=== PATIENT | female | born 2000 | race Caucasian/White ===

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

== ENCOUNTER 2020-03-09 07:30 | Emergency (ER) | payer OTHER ==
[~2020-03-09] VITALS: Ht 162.5 cm; Wt 77.2 kg
[~2020-03-09 07:30] MED LIST: METH-313 PO
[2020-03-09] MEDS ORDERED: KETOROLAC 30 MG/ML VIAL IVP ONE (07:45)
--- NOTE | 2020-03-09 07:48 | ED Abdominal Pain ---
General Stated Complaint: RLQ PAIND Source of Information: Patient Exam Limitations: No Limitations History of Present Illness Date Seen by Provider: Mar 09, 2020 Time Seen by Provider: 07:30 Initial Comments Patient presents ER by private conveyance from home with chief complaint she was awoken by an hour ago with 7 out of 10 right-sided sharp pain in her right lower quadrant radiating down towards her pelvis. She is not had this pain before. She denies any nausea fevers chills. She had a bowel movement yesterday. No abdominal surgeries, trauma or significant medical history. She is on antiallergy medicines and oral contraceptives. Allergies and Home Medications Allergies Coded Allergies: No Known Drug Allergies (Unverified , 03/09/20) Home Medications Methocarbamol 750 Mg Tablet, 750 MG PO Q4H PRN for PAIN-MODERATE (5-7) Prescribed by: JENNIFER JONES on 12/25/181943 Patient Home Medication List Home Medication List Reviewed: Yes Review of Systems Review of Systems Constitutional: No chills, No diaphoresis EENTM: No Blurred Vision, No Double Vision Respiratory: Denies Cough, Denies Shortness of Air Cardiovascular: Denies Chest Pain, Denies Lightheadedness Gastrointestinal: See HPI, Abdominal Pain; Denies Constipated, Denies Diarrhea, Denies Nausea Genitourinary: Denies Burning, Denies Discharge Musculoskeletal: No back pain, No joint pain Skin: No pruritus, No rash All Other Systems Reviewed Negative Unless Noted: Yes Past Eoprkix-Awpdrg-Ofngcq Hx Patient Social History Alcohol Use: Denies Use Smoking Status: Never a Smoker 2nd Hand Smoke Exposure: No Recent Hopitalizations: No Immunizations Up To Date Tetanus Booster (TDap): Less than 5yrs PED Vaccines UTD: Yes Seasonal Allergies Seasonal Allergies: Yes Past Medical History Orthopedic Respiratory: No Cardiac: No Neurological: No Genitourinary: No Gastrointestinal: No Musculoskeletal: No Endocrine: No HEENT: No Cancer: No Psychosocial: No Integumentary: No Blood Disorders: No Physical Exam Vital Signs Vital Signs - First Documented 03/09/20 07:42 Temp 36.0 Pulse 113 Resp 18 B/P (MAP) 129/79 (96) Pulse Ox 99 O2 Delivery Room Air Capillary Refill : Height/Weight/BMI Height: '" Weight: lbs. oz. kg; 26.00 BMI Method: General Appearance: WD/WN, no apparent distress HEENT: PERRL/EOMI, pharynx normal Respiratory: no respiratory distress, no accessory muscle use Cardiovascular: normal peripheral pulses, regular rate, rhythm Peripheral Pulses: 2+ Radial Pulses (R), 2+ Radial Pulses (L) Gastrointestinal: normal bowel sounds, non tender, soft, no organomegaly, other (Negative for McBurney's point tenderness, rebound tenderness, Thurston sign, psoas sign) Back: normal inspection, no CVA tenderness Neurologic/Psychiatric: alert, oriented x 3 Skin: normal color, warm/dry Progress/Results/Core Measures Results/Orders Lab Results Laboratory Tests Test 03/09/20 08:00 Range/Units White Blood Count 10.8 4.3-11.0 10^3/uL Red Blood Count 4.39 3.80-5.11 10^6/uL Hemoglobin 13.6 11.5-16.0 g/dL Hematocrit 40 35-52 % Mean Corpuscular Volume 90 80-99 fL Mean Corpuscular Hemoglobin 31 25-34 pg Mean Corpuscular Hemoglobin Concent 34 32-36 g/dL Red Cell Distribution Width 11.6 10.0-14.5 % Platelet Count 338 130-400 10^3/uL Mean Platelet Volume 9.7 9.0-12.2 fL Immature Granulocyte % (Auto) 0 % Neutrophils (%) (Auto) 55 42-75 % Lymphocytes (%) (Auto) 37 12-44 % Monocytes (%) (Auto) 5 0-12 % Eosinophils (%) (Auto) 2 0-10 % Basophils (%) (Auto) 1 0-10 % Neutrophils # (Auto) 5.9 1.8-7.8 10^3/uL Lymphocytes # (Auto) 4.0 1.0-4.0 10^3/uL Monocytes # (Auto) 0.5 0.0-1.0 10^3/uL Eosinophils # (Auto) 0.2 0.0-0.3 10^3/uL Basophils # (Auto) 0.1 0.0-0.1 10^3/uL Immature Granulocyte # (Auto) 0.0 0.0-0.1 10^3/uL Sodium Level 138 135-145 MMOL/L Potassium Level 3.4 L 3.6-5.0 MMOL/L Chloride Level 109 H 98-107 MMOL/L Carbon Dioxide Level 18 L 21-32 MMOL/L Anion Gap 11 5-14 MMOL/L Blood Urea Nitrogen 9 7-18 MG/DL Creatinine 0.84 0.60-1.30 MG/DL Estimat Glomerular Filtration Rate > 60 BUN/Creatinine Ratio 11 Glucose Level 116 H 70-105 MG/DL Calcium Level 8.9 8.5-10.1 MG/DL Corrected Calcium 9.0 8.5-10.1 MG/DL Total Bilirubin 0.4 0.1-1.0 MG/DL Aspartate Amino Transf (AST/SGOT) 23 5-34 U/L Alanine Aminotransferase (ALT/SGPT) 22 0-55 U/L Alkaline Phosphatase 42 40-136 U/L C-Reactive Protein High Sensitivity 0.23 0.00-0.50 MG/DL Total Protein 7.3 6.4-8.2 GM/DL Albumin 3.9 3.2-4.5 GM/DL Serum Test, Qualitative NEGATIVE NEGATIVE My Orders Orders - CROW MADRIGAL Ua Culture If Indicated (03/09/20 07:32) Cbc With Automated Diff (03/09/20 07:40) Comprehensive Metabolic Panel (03/09/20 07:40) Hs C Reactive Protein (03/09/20 07:40) Ketorolac Injection (Toradol Injection) (03/09/20 07:45) Ed Iv/Invasive Line Start (03/09/20 07:40) Ed Iv/Invasive Line Start (03/09/20 07:50) Lactated Ringers (Lr 1000 Ml Iv Solution (03/09/20 08:00) Ondansetron Injection (Zofran Injectio (03/09/20 08:15) Ondansetron Injection (Zofran Injectio (03/09/20 07:59) Fentanyl Injection (Sublimaze Injection (03/09/20 08:45) Ondansetron Injection (Zofran Injectio (03/09/20 08:45) Ct Abd/Pelvis Wo(Kidney Stone) (03/09/20 08:37) Hcg,Qualitative Serum (03/09/20 08:46) Tamsulosin Capsule (Flomax Capsule) (03/09/20 18:00) Ceftriaxone For Iv Use (Rocephin For I (03/09/20 09:15) Tamsulosin Capsule (Flomax Capsule) (03/09/20 09:17) Tamsulosin Capsule (Flomax Capsule) (03/09/20 09:22) Medications Given in ED Current Medications Medications Dose Ordered Sig/Rina Route Start Time Stop Time Status Last Admin Dose Admin Ceftriaxone Sodium 1000 mg/ Sterile Water 10 ml @ 200 mls/hr ONCE ONCE IV 03/09/20 09:15 03/09/20 09:17 DC 03/09/20 09:29 200 MLS/HR Fentanyl Citrate 25 mcg ONCE ONCE IVP 03/09/20 08:45 03/09/20 08:46 DC 03/09/20 08:43 25 MCG Ketorolac Tromethamine 30 mg ONCE ONCE IVP 03/09/20 07:45 03/09/20 07:46 DC 03/09/20 08:03 30 MG Lactated Ringer's 1,000 ml @ 0 mls/hr Q0M ONCE IV 03/09/20 08:00 03/09/20 08:01 DC 03/09/20 08:05 1,000 MLS/HR Ondansetron HCl 4 mg ONCE ONCE IVP 03/09/20 08:15 03/09/20 08:16 DC 03/09/20 08:08 4 MG Ondansetron HCl 4 mg ONCE ONCE IVP 03/09/20 08:45 03/09/20 08:46 DC 03/09/20 08:41 4 MG Vital Signs/I&O 03/09/20 07:42 Temp 36.0 Pulse 113 Resp 18 B/P (MAP) 129/79 (96) Pulse Ox 99 O2 Delivery Room Air Progress Progress Note #1: Time: 07:48 Progress Note Patient rates her pain as a 7 out of 10 so we have offered some Toradol. We are going to check some urine and labs however she has a non concerning abdominal exam and a septic vital signs. Gynecologic ovarian/mittelschmerz, less likely appendicitis/colitis. She does not seem acutely uncomfortable as though she had a kidney stone trying to pass. If her pain improves and her labs are unremarkable then I would encourage follow-up outpatient in the clinic. Progress Note #2: Time: 08:36 Progress Note The patient reported nausea shortly after arriving. She was unable to produce a urine sample. A liter of fluids and 4 of Zofran were ordered. The patient did not derive any pain relief from the Toradol so 25 mcg of fentanyl were ordered and another 4 of Zofran was ordered after she had an episode of emesis. Kidney stone, gynecologic, appendicitis. On repeat examination the patient is having positive tenderness to percussion over the right costovertebral angle. She says her pain comes and goes in waves and is very bad about 8 out of 10 right now. Pain does not appear to be positional. A CT scan of the abdomen and pelvis without IV contrast kidney stone protocol has been ordered. She has about 400 cc of her fluid left to go. Diagnostic Imaging Diagonstic Imaging: CT (Kidney stone study, without IV contrast) Plain Films/CT/US/NM/MRI: abdomen, pelvis Comments NAME: GISELA KAUR [facility] REC#: [id number] PT STATUS: REG ER : 2000 PHYSICIAN: CROW MADRIGAL MD ADMIT DATE: 03/09/20/ER Draft Date of Exam:03/09/20 CT ABD/PELVIS WO(KIDNEY STONE) PROCEDURE: CT urinary tract, rule out kidney stone. TECHNIQUE: Multiple contiguous axial images were obtained through the abdomen and pelvis without the use of intravenous contrast. Auto Exposure Controls were utilized during the CT exam to meet ALARA standards for radiation dose reduction. INDICATION: Right-sided pain. FINDINGS: There are two stones within the proximal third of the right ureter. The more proximal has a long axis of 3.4 mm and the more distal measures 3.2 mm. There is some associated urothelial thickening. The ureter is decompressed beyond the level of the more distal stone and no additional opaque ureteral or bladder calculi are found. There is a very mild degree of right-sided upstream hydronephrosis but no urinoma or perinephric fluid collection. The unobstructed left kidney appears nonfocal and nonacute. The left ureter is without stone or dilatation. The uterus, adnexa, and urinary bladder are unremarkable. There is no appendicitis. The liver, gallbladder, bile ducts, spleen, adrenals, and pancreas are negative. The aorta is normal in caliber. IMPRESSION: Two proximal third right ureteral stones with mild upstream right-sided hydroureteronephrosis. Negative left kidney. No other significant finding. Dictated on workstation # [id number] Dict: 03/09/20 0903 Trans: 03/09/20 0932 [id number] Interpreted by: ANTONELLA FERRO Electronically signed by: Reviewed: Reviewed by Me Departure Impression Primary Impression: Ureteral calculi Disposition: HOME, SELF-CARE Condition: Improved Departure-Patient Inst. Decision time for Depature: 09:36 Referrals: NO,LOCAL PHYSICIAN (PCP) Primary Care Physician NOELLE DUMONT MD Patient Instructions: How to Strain Your Urine, Kidney Stones (DC) Add. Discharge Instructions: Drink lots of fluids. Tylenol 650 mg every 8 hours as needed for pain. Motrin 800 mg every 8 hours as needed for pain. Heat applied to the back as needed. Hydrocodone 1 tablet every 6 hours as necessary for breakthrough pain. Flomax 1 capsule daily until you pass the stones. Ondansetron 1 tablet every 6 hours under the tongue as necessary for nausea and/or vomiting. Keflex 1 capsule twice a day for the next week to treat possible UTI. Strain your urine using the strainer to see when the stones pass. Occasionally stones will break up and not be caught in the strainer. Symptoms should resolve 1 to 2 days after the passing of stones. If your symptoms are going on into early next week then I suggest you follow-up with Dr. Dumont, urology. Return to the nearest ER if you are having intractable pain and/or nausea, fever etc. Scripts Tamsulosin HCl (Flomax) 0.4 Mg Cap 0.4 MG PO HS for 7 Days, #7 CAP 0 Refills Prov: CROW MADRIGAL 03/09/20 Cephalexin (Cephalexin) 500 Mg Tablet 500 MG PO BID for 7 Days, #14 TAB 0 Refills Prov: CROW MADRIGAL 03/09/20 Ondansetron (Ondansetron Odt) 4 Mg Tab.rapdis 4 MG PO Q6H PRN for NAUSEA/VOMITING, #15 TAB 0 Refills Prov: CROW MADRIGAL 03/09/20 Hydrocodone/Acetaminophen (Hydrocodone-Acetamin 5-325 mg) 1 Each Tablet 1 TAB PO Q6H PRN for PAIN-MODERATE (5-7), #15 TAB 0 Refills Prov: CROW MADRIGAL 03/09/20 Work/School Note: School/Childcare Release Date Seen in the Emergency Department: Mar 09, 2020 Time Dismissed from Emergency Department: 10:45 Return to School: Mar 14, 2020 Restrictions: No Restrictions Other Restrictions Listed Below: May return sooner if symptoms allow. Copy Copies To 1: NOELLE DUMONT MD, TITUS J Mar 09, 2020 07:48
[2020-03-09] MEDS ORDERED: ONDANSETRON 4 MG/2 ML (SDV) Z0FRAN ONE (07:59)
[2020-03-09] MEDS ORDERED: LACTATED RINGERS 1,000 ML IV ONE (08:00)
[2020-03-09 08:13] LABS: BASOPHILS # (AUTO) 0.1 10^3/uL (0.0-0.1); BASOPHILS % (AUTO) 1 % (0-10); EOSINOPHILS # (AUTO) 0.2 10^3/uL (0.0-0.3); EOSINOPHILS % (AUTO) 2 % (0-10); HEMATOCRIT 40 % (35-52); HEMOGLOBIN 13.6 g/dL (11.5-16.0); LYMPHOCYTES % (AUTO) 37 % (12-44); MEAN CORPUSCULAR HEMOGLOBIN 31 pg (25-34); MEAN CORPUSCULAR HGB CONC 34 g/dL (32-36); MEAN CORPUSCULAR VOLUME 90 fL (80-99); MEAN PLATELET VOLUME 9.7 fL (9.0-12.2); MONOCYTES # (AUTO) 0.5 10^3/uL (0.0-1.0); MONOCYTES % (AUTO) 5 % (0-12); NEUTROPHILS # (AUTO) 5.9 10^3/uL (1.8-7.8); NEUTROPHILS % (AUTO) 55 % (42-75); PLATELET COUNT 338 10^3/uL (130-400); WHITE BLOOD COUNT 10.8 10^3/uL (4.3-11.0)
[2020-03-09] MEDS ORDERED: ONDANSETRON 4 MG/2 ML (SDV) Z0FRAN IVP ONE ×2 (08:15→08:45)
[2020-03-09 08:25] LABS: ALBUMIN 3.9 GM/DL (3.2-4.5); CHLORIDE 109 MMOL/L (98-107); POTASSIUM 3.4 MMOL/L (3.6-5.0); SODIUM 138 MMOL/L (135-145)
[2020-03-09 08:26] LABS: CALCIUM 8.9 MG/DL (8.5-10.1)
[2020-03-09 08:27] LABS: GLUCOSE 116 MG/DL (70-105); TOTAL PROTEIN 7.3 GM/DL (6.4-8.2)
[2020-03-09 08:28] LABS: CARBON DIOXIDE 18 MMOL/L (21-32)
[2020-03-09 08:29] LABS: BILIRUBIN,TOTAL 0.4 MG/DL (0.1-1.0)
[2020-03-09 08:30] LABS: ALKALINE PHOSPHATASE 42 U/L (40-136)
[2020-03-09 08:31] LABS: CREATININE SERUM 0.84 MG/DL (0.60-1.30); GFR ESTIMATED > 60
[2020-03-09 08:32] LABS: BUN/CREATININE RATIO 11
[2020-03-09 08:34] LABS: ALANINE AMINOTRANSFERASE 22 U/L (0-55)
--- NOTE | 2020-03-09 08:36 | NUR ---
CONT'T TO HAVE PAIN VOITED X1 AWARE Addendum: 03/09/20 at 1115 by PMCCLURE INSTRUCTED OF USE OF STRAINER
[2020-03-09] MEDS ORDERED: fentaNYL INJECTION 100 MCG/2 ML AMP IVP ONE (08:45)
[2020-03-09] MEDS ORDERED: cefTRIAXone FOR IV USE 1,000 MG in WATER (STERILE) FOR INJECTION 10 ML IV ONE (09:15)
[2020-03-09] MEDS ORDERED: TAMSULOSIN 0.4 MG (FLOMAX) CAP PO ONE (09:17)
[2020-03-09] MEDS ORDERED: TAMSULOSIN 0.4 MG (FLOMAX) CAP PO STA (09:22)
--- NOTE | 2020-03-09 09:29 | NUR ---
PATIENT REPORTS THAT PAIN BETTER
--- NOTE | 2020-03-09 09:32 | Diagnostic Imaging Report ---
PROCEDURE: CT urinary tract, rule out kidney stone. TECHNIQUE: Multiple contiguous axial images were obtained through the abdomen and pelvis without the use of intravenous contrast. Auto Exposure Controls were utilized during the CT exam to meet ALARA standards for radiation dose reduction. INDICATION: Right-sided pain. FINDINGS: There are two stones within the proximal third of the right ureter. The more proximal has a long axis of 3.4 mm and the more distal measures 3.2 mm. There is some associated urothelial thickening. The ureter is decompressed beyond the level of the more distal stone and no additional opaque ureteral or bladder calculi are found. There is a very mild degree of right-sided upstream hydronephrosis but no urinoma or perinephric fluid collection. The unobstructed left kidney appears nonfocal and nonacute. The left ureter is without stone or dilatation. The uterus, adnexa, and urinary bladder are unremarkable. There is no appendicitis. The liver, gallbladder, bile ducts, spleen, adrenals, and pancreas are negative. The aorta is normal in caliber. IMPRESSION: Two proximal third right ureteral stones with mild upstream right-sided hydroureteronephrosis. Negative left kidney. No other significant finding. Dictated by: Dictated on workstation # [id number]
[2020-03-09] MEDS ORDERED: CEPH500T PO (10:48)
[2020-03-09] MEDS ORDERED: TMSL.4C PO (10:48)
[2020-03-09] MEDS ORDERED: ONDA4TAB11 PO (10:48)
[2020-03-09] MEDS ORDERED: ACHD5005 PO (10:48)
[2020-03-09 11:01] VITALS: BP 118/77
[2020-03-09] MEDS ORDERED: TAMSULOSIN 0.4 MG (FLOMAX) CAP PO SCH (18:00)
== END 2020-03-09 11:01 | disposition home or self-care (01) ==
LOC: EDUNIT# 07:30 → ER 07:33
DX: N13.2 Hydronephrosis with renal and ureteral calculous obstruction (principal)
CPT/HCPCS: 36415; 74176; 80053; 84703; 85025; 86141

== ENCOUNTER → 2020-03-14 | Outpatient (CLI) | payer OTHER ==
[~2020-03-14] MED LIST changes: +ACHD5005 PO; +CEPH500T PO; +CETI10TA49 PO; +NORE1TAB24 PO; +ONDA4TAB11 PO; +TMSL.4C PO
--- NOTE | 2020-03-14 12:38 | Diagnostic Imaging Report ---
INDICATION: Right ureteral calculus. COMPARISON: CT dated 03/09/2020 FINDINGS: Single supine radiographic view of the abdomen was obtained and demonstrates nondistended loops of small bowel. There is no large collection of free peritoneal air. Moderate air and stool are seen scattered throughout the colon. No unexpected radiopaque foreign bodies are seen. Faint 3 mm extraosseous calcification is noted projecting superior to the right transverse process of L4. There are 6 lumbar type vertebral bodies. Bony structures show no gross acute abnormalities. IMPRESSION: 1. Extraosseous calcification projecting superior to the right L4 transverse process. Conceivably, this could correspond to previously described ureteral calculus. 2. Nonobstructed small bowel gas pattern. 3. Moderate colonic air and stool. Please correlate for constipation Dictated by: Dictated on workstation # [id number]
== END ==
LOC: RAD 12:06
PROVIDERS: ATTEND Urology
DX: N20.1 Calculus of ureter (principal)
CPT/HCPCS: 74018

== ENCOUNTER 2020-03-18 05:37 | Outpatient (RCR) | payer OTHER ==
[~2020-03-18] VITALS: Ht 162.6 cm; Wt 77.3 kg
== END 2020-03-18 13:40 | disposition home or self-care (01) ==
LOC: PREOP 05:37
PROVIDERS: ATTEND Urology
DX: Z01.812 Encounter for preprocedural laboratory examination (principal); N20.1 Calculus of ureter; Z20.822 Contact with and (suspected) exposure to COVID-19
CPT/HCPCS: 87635